=== PATIENT | female | born 1985 | race Caucasian/White ===

== ENCOUNTER 2017-02-26 05:50 | Emergency (ER) | payer MEDICAID ==
[2017-02-26] MEDS: ACETAMINOPHEN 500 MG TAB PO (06:49)
== END 2017-02-26 07:20 | disposition home or self-care (01) ==
LOC: FTE 05:50
DX: R05 Cough (principal); R06.02 Shortness of breath; J45.909 Unspecified asthma, uncomplicated; E03.9 Hypothyroidism, unspecified; R50.9 Fever, unspecified; R52 Pain, unspecified
CPT/HCPCS: 99283; Z7502